=== PATIENT | female | born 1935 | race Caucasian/White ===

== ENCOUNTER 2017-01-13 15:18 | Inpatient (IN) | payer MEDICARE, BC ==
--- NOTE | ~2017-01-13 | EKG ---
PATIENT: JASMIN BOONE UNIT #: [id number] Ventricular Rate: 95 BPM Atrial Rate: 141 BPM QRS Duration: 80 ms Q-T Interval: 368 ms QTC Calculation(Bezet): 462 ms Calculated R Nunnelly: 14 degrees Calculated T Nunnelly: -79 degrees Diagnosis Line: Atrial fibrillation with occasional Diagnosis Line: ventricular-paced complexes Diagnosis Line: ST and T wave abnormality, consider inferior Diagnosis Line: ischemia Diagnosis Line: Abnormal ECG Diagnosis Line: No previous ECGs available Diagnosis Line: Confirmed by ASHIA DAWN MD ([id number]) on 01/16/2017 Diagnosis Line: 10:46:34 PM INTERPRETING MD: NEREYDA LR
--- NOTE | ~2017-01-13 | HP ---
Unit #: [id number] #: [id number] Patient: JASMIN BOONE [id number] [address] [address] [id number] E MR#: [id number] NAME: JASMIN BOONE ROOM: Age: 81 Sex: F Admission Date: 01/13/2017 : 1935 Attending Physician: Spencer Nunes Primary Care Physician: Carol Carmichael M.D. HISTORY AND PHYSICAL CHIEF COMPLAINT Shortness of air. HISTORY OF PRESENT ILLNESS The patient is an 81-year-old female with a history of coronary artery disease, atrial fibrillation, bilateral carotid artery disease, chronic kidney disease, history of hyperlipidemia, hypertension, hypothyroidism, brought to the emergency room complaining of shortness of breath for two to three days. The patient is a poor historian and the history is obtain by reviewing the records and speaking with the ER physician and the ER nurse, as there is no family member available at the time of examination. The patient stated the patient also complains of the pain in the right cheek. The patient is edentulous but uses the dentures. The patient complains of the productive cough with yellowish to greenish. The patient was recently admitted for flu three weeks ago. The patient denies any fever or chills. Positive for decreased oral intake and generalized weakness. PAST MEDICAL HISTORY 1. History of anxiety. 2. Atherosclerotic coronary artery disease. 3. Asthma. 4. Atrial fibrillation. 5. Bilateral carotid artery disease. 6. Chronic obstructive pulmonary disease. 7. CKD. 8. Congestive heart failure. 9. CVA. 10. Depression. 11. Dermatitis. 12. Edema. 13. disease. PAST SURGICAL HISTORY 1. Pacemaker placement. 2. Hip replacement. HOME MEDICATIONS 1. Xanax. 2. Norvasc. 3. Aspirin. 4. Bumex. 5. Combivent. 6. Crestor. Unit #: [id number] #: [id number] Patient: JASMIN BOONE 7. Digoxin. 8. Dulera. 9. Celexa. 10. Fenofibrate. 11. Gabapentin. 12. Isordil. 13. Levothyroxine. 14. Lopressor. 15. Simvastatin. 16. Tradjenta. 17. Warfarin. ALLERGIES Quinolones. SOCIAL HISTORY No history of smoking, alcohol or illicit drug abuse. FAMILY HISTORY Reviewed and none. REVIEW OF SYSTEMS A 14-point review of systems performed and only pertinent positive findings as described above, remaining are negative. PHYSICAL EXAMINATION VITAL SIGNS: Temperature 98.1, pulse 106, respiratory rate 25, blood pressure 150/60, saturating 93% at 2 liters. GENERAL: Patient is lying on the bed not in acute distress. HEENT: Atraumatic, normocephalic. Pupils equal, round, and reactive to light and accommodation. Extraocular movements are intact. Dry mucous membrane. Patient has pain on the right side of the face. No obvious gross tenderness inside the mouth. NECK: Supple. No JVD. LUNGS: Decreased air entry at the bases. Positive for rhonchi. HEART: Irregular rate and rhythm. ABDOMEN: Soft, positive bowel sounds. EXTREMITIES: No cyanosis, no clubbing. NEUROLOGIC: Alert, awake, oriented. No gross focal motor deficit. DIAGNOSTIC STUDIES LABORATORY: Glucose 161, BUN 18, creatinine 1.2, sodium 134, potassium 4.1, chloride 99, bicarb 23, calcium 9.5, lactic acid 1.3. INR 1.6. WBC 27.2, hemoglobin 11.6, hematocrit 35, neutrophils 86.3%. Flu screen is negative. IMAGING: Chest x-ray shows bibasilar infiltrate more pronounced on the right side compared to the left side. CARDIOVASCULAR: EKG shows atrial fibrillation with occasional low ventricular paced complexes at a rate of 95 beats per minute, QTC of 462. ASSESSMENT AND PLAN 1. Pneumonia. 2. Atrial fibrillation. 3. Right cheek pain. 4. Hyponatremia. Unit #: [id number] #: [id number] Patient: JASMIN BOONE PLAN 1. Admit patient to inpatient with telemetry. 2. Continue with IV antibiotics with Rocephin, Zithromax. 3. Check the sputum culture. 4. X-ray of right cheek to rule out abscess. 5. Repeat the labs again in the morning. 6. Further recommendations will follow. Dictated by Abiola Arceo TD: 01/13/2017 18:13 JOB #: [id number] HISTORY AND PHYSICAL Page 1 of 1 X X HISTORY AND PHYSICAL
--- NOTE | ~2017-01-13 | CR72 ---
[facility] A Service of [facility] RADIOLOGY TEXT RESULTS PATIENT: JASMIN BOONE LOCATION: [facility] : 35 UNIT #: [id number] AGE: [address]: Elizabet Espinoza MD SEX: F ORDER DR: [id number] [facility] [address] [place], [place] [address] [id number] I MR#: [id number] Acc #: [id number] NAME: JASMIN BOONE : 1935 SEX: F STUDY DATE/TIME: 01/13/2017 15:08 UNIT: [address] ROOM: [facility] STUDY DESCRIPTION: CR Chest Single View Portable Attending Physician: Scott Sheffield M.D. Ordering Physician: Wes Muhammad M.D. Primary Care Physician: Carol Carmichael M.D. MEDICAL IMAGING REPORT This report is preliminary unless electronic signature is present EXAM Portable chest. DATE OF EXAM 01/13/2017 COMPARISON STUDIES 12/14/2016 HISTORY Cough, congestion, shortness of breath beginning 2 days ago. FINDINGS AP view of the chest obtained. Cardiac size is normal. Transvenous pacemaker remains in place. There are patchy basilar infiltrates. When compared with the study of 12/14/2016, the left basilar infiltrate appears about the same. There may be a slight increase in right basilar infiltrate peripherally. CONCLUSION 1. Chronic interstitial changes in both lungs. 2. Bibasilar infiltrates. Left-sided infiltrate is unchanged from 12/14, right side infiltrate may have increased slightly. Dictated by... Jamie Hodge M.D. THIS IS AN ELECTRONICALLY VERIFIED REPORT Jamie Hodge M.D. at 01/16/2017 2:44 PM GINNA/ginette [facility] A Service of [facility] & [facility] RADIOLOGY TEXT RESULTS PATIENT: JASMIN BOONE LOCATION: [facility] 308 : 35 UNIT #: [id number] AGE: [address]: Elizabet Espinoza MD SEX: F ORDER DR: TD: 01/13/2017 19:59 JOB #: [id number] MEDICAL IMAGING REPORT Page 1 of 1 COPY
--- NOTE | ~2017-01-13 | CT57 ---
[facility] A Service of [facility] & [facility] RADIOLOGY TEXT RESULTS PATIENT: JASMIN BOONE LOCATION: [facility] 308- : 35 UNIT #: [id number] AGE: [address]: Patricio Prakash MD SEX: F ORDER DR: [id number] [facility] [address] [place], [place] [address] [id number] I MR#: [id number] Acc #: [id number] NAME: JASMIN BOONE : 1935 SEX: F STUDY DATE/TIME: 01/14/2017 12:55 UNIT: [address] ROOM: [facility] STUDY DESCRIPTION: CT Chest Wo Cont Attending Physician: Patricio Strickland M.D. Ordering Physician: Physician Non-Staff Primary Care Physician: Carol Carmichael M.D. MEDICAL IMAGING REPORT This report is preliminary unless electronic signature is present EXAM CT chest without contrast. HISTORY Shortness of air and pneumonia [address] exam was performed with one or more of the following radiation dose reduction techniques: automatic exposure control, adjustment of mA and/or kV according to patient size, and iterative reconstruction. FINDINGS CT chest without contrast demonstrates patchy subsegmental infiltrate in the posterior right lung apex. Moderate interstitial prominence in the peripheral lower lungs bilaterally could be due to interstitial scarring, edema, or atelectasis, with slight interval increase in subpleural infiltrates in the lower lungs compared to chest CT 04/22/2016. Mild bronchiectasis in the bilateral lower lobes. No additional airspace infiltrates. No pleural effusions. Mild right paratracheal adenopathy measures 1.3 cm in short axis dimension. Mild adenopathy in the azygoesophageal recess measures 1.5 cm. These nodes are slightly larger than on the prior chest CT. IMPRESSION 1. Mild patchy subsegmental infiltrate in the posterior right upper lobe is nonspecific. Considerations include pneumonia. 2. Moderate coarse peripheral subpleural interstitial prominence in the mid and lower lungs bilaterally, slightly greater than on chest CT 04/22/2016. Considerations include interstitial scarring, edema, or atelectasis. 3. Mild bronchiectasis in the bilateral lower lobes. 4. No additional focal airspace infiltrates. 5. Mildly prominent mediastinal nodes are slightly greater than on the [facility] A Service of [facility] & [facility] RADIOLOGY TEXT RESULTS PATIENT: JASMIN BOONE LOCATION: [facility] 308-01 : 35 UNIT #: [id number] AGE: [address]: Patricio Prakash MD SEX: F ORDER DR: prior exam and could be secondary to reactive or inflammatory adenopathy. 6. No pleural effusions. Dictated by... Jefry Mcginnis M.D. THIS IS AN ELECTRONICALLY VERIFIED REPORT Jefry Mcginnis M.D. at 01/15/2017 5:14 PM MARILYN/chad TD: 01/15/2017 08:03 JOB #: [id number] MEDICAL IMAGING REPORT Page 1 of 1 COPY
--- NOTE | ~2017-01-13 | US116 ---
[facility] A Service of [facility] & [facility] RADIOLOGY TEXT RESULTS PATIENT: JASMIN BOONE LOCATION: [facility] 308-01 : 35 UNIT #: [id number] AGE: [address]: Elizabet Espinoza MD SEX: F ORDER DR: [id number] [facility] [address] [place], [place] [address] [id number] I MR#: [id number] Acc #: [id number] NAME: JASMIN BOONE : 1935 SEX: F STUDY DATE/TIME: 01/14/2017 12:38 UNIT: [address] ROOM: 308 STUDY DESCRIPTION: US Soft Tissue Head/Neck Attending Physician: Patricio Strickland M.D. Ordering Physician: Ed Doctor [id number] [facility] Primary Care Physician: Carol Carmichael M.D. MEDICAL IMAGING REPORT This report is preliminary unless electronic signature is present EXAM Soft tissue ultrasound of the head and neck. COMPARISON CT cervical spine dated March 06, 2009. CT soft tissue neck with IV contrast on January 27, 2009. INDICATION An 81-year-old female with pain and swelling over the right parotid gland for 3 days. Evaluate for possible abscess. FINDINGS In the superficial right parotid gland there is a hypoechoic nodule measuring 3 mm x 4 mm x 3 mm, likely corresponding to the enhancing nodule seen in this location on CT in 2008, possibly representing a normal lymph node. There is no convincing evidence of parotid abscess. The right gland otherwise appears homogeneous. The hypoechoic nodule does not have an internal color flow. In the sagittal plane, the right parotid gland measures 3.9 cm x 1.1 cm. IMPRESSION There is a 4 mm hypoechoic superficial lesion within parotid gland which does not have appreciable internal color flow. This could represent a tiny cyst or more likely this probably corresponds to a 3 mm intraparotid lymph node seen in this location on CT of January 27, 2009. Clinical correlation recommended. It could also represent an early abscess but this is thought much less likely. If symptoms persist, repeat ultrasound could be performed. Regardless, consider followup ultrasound in 6-12 months to document stability. [facility] A Service of [facility] & [facility] RADIOLOGY TEXT RESULTS PATIENT: JASMIN BOONE LOCATION: [facility] 308-01 : 35 UNIT #: [id number] AGE: [address]: Elizabet Espinoza MD SEX: F ORDER DR: Dictated by... Marbin Wright M.D. THIS IS AN ELECTRONICALLY VERIFIED REPORT Marbin Wright M.D. at 01/17/2017 9:11 AM XOCHITL/chichi TD: 01/15/2017 00:59 JOB #: [id number] MEDICAL IMAGING REPORT Page 1 of 1 COPY
--- NOTE | ~2017-01-13 | DS ---
Unit #: [id number] #: [id number] Patient: JASMIN BOONE [id number] [address] [address] [id number] I MR#: [id number] NAME: JASMIN BOONE ROOM: 308 Age: 81 Sex: F Admission Date: 01/13/2017 : 1935 Discharge Date: 01/16/2017 Attending Physician: Elizabet Espinoza M.D. Primary Care Physician: Carol Carmichael M.D. DISCHARGE SUMMARY PRIMARY CARE PHYSICIAN Dr. Carol Carmichael. PRINCIPAL DIAGNOSES 1. Sepsis secondary to right upper lobe healthcare associated pneumonia. 2. Acute hypoxic respiratory failure, now resolved. 3. Right facial swelling, resolved with negative workup. 4. Chronic obstructive pulmonary disease without exacerbation. 5. Chronic atrial fibrillation, rate controlled and maintained on anticoagulation. 6. Mild deconditioning. 7. Mild memory loss. 8. Depression. 9. Hypertension. 10. Diabetes mellitus, type 2, non-insulin requiring, controlled. 11. Hyperlipidemia. 12. Hypothyroidism. 13. Congestive heart failure unknown type with unknown ejection fraction. 14. Chronic kidney disease, stage 3 with baseline creatinine of 1.4. 15. History of stroke. 16. Chronic lower extremity edema. 17. Bronchiectasis. CONSULTANTS None. PROCEDURES 1. CT of the chest without contrast on 01/14/2017 with subsegmental infiltrate in the right upper lobe consistent with pneumonia. Interstitial prominence in mid-lower lung zones bilaterally consistent with scarring, bronchiectasis in the bilateral lower lobes noted. 2. Ultrasound of soft tissue of head and neck without any evidence of stone or abscess within the right parotid gland. 3. Facial x-ray on 01/13/2017 which was normal. 4. Chest x-ray on 01/13/2017 with interstitial changes in both lungs and bibasilar infiltrates. CLINICAL HISTORY AND HOSPITAL COURSE Ms. Boone is an 81-year-old female, who presents to emergency department with shortness of breath. Please refer to H and P for further details. Chest x-ray in the emergency department reveal questionable pneumonia versus scarring; however, she did have an elevated white blood cell count of 27.2, and she was also found to be hypoxic. She was Unit #: [id number] #: [id number] Patient: JASMIN BOONE subsequently admitted. The patient was placed on broad-spectrum antibiotic therapy in addition to nebulizer treatments and oxygen. Over the course of the next several days, white blood cell count has decreased to 13.6 and hypoxia has resolved. Causative organism was not obtained. CT scan of the chest did reveal pneumonia and again she will continue on antibiotics upon discharge. In regard to respiratory failure, again this has resolved. She will continue on nebulizer treatments and Dulera as she was doing at home previously. The patient is on chronic Coumadin therapy and last INR was mildly subtherapeutic at 1.9. She will continue home dose of Coumadin and INR can be checked by home health. The patient's other chronic conditions remained stable. She is mildly deconditioned and PT is recommending home health, which we will arrange upon discharge. DISCHARGE CONDITION Stable. DISCHARGE STATUS Discharged to home with home health for PT/OT and INR monitoring. DISCHARGE MEDICATIONS Vantin 200 mg p.o. b.i.d. for another 5 days, Combivent nebulizer treatments 3 mL q.6 hours p.r.n. for shortness of breath, Coumadin 1 mg alternating with 3 mg every other day, Lexapro 10 mg daily, Xanax 0.25 mg daily, Dulera 200/5 mcg 2 puffs b.i.d., Norvasc 5 mg daily, digoxin of home dose daily, metoprolol succinate 50 mg half a tablet p.o. daily, Tradjenta 5 mg daily, Lasix 40 mg daily, fenofibrate 145 mg daily, Crestor 20 mg daily, aspirin 81 mg daily, levothyroxine 25 mcg p.o. daily, Imdur ER 30 mg daily. DISCHARGE INSTRUCTIONS The patient was instructed to follow a heart healthy diet. She can increase her activity as tolerated. FOLLOWUP The patient to follow up with her primary care physician, Dr. Carol Carmichael in 1 to 2 weeks. She needs followup INR done on 01/18/2017 with results faxed to Dr. Carmichael. Goal INR 2 to 3. Dictated by... Elizabet Espinoza M.D. NAREN/kenzie TD: 01/17/2017 02:20 JOB #: [id number] Unit #: [id number] #: [id number] Patient: JASMIN BOONE DISCHARGE SUMMARY Page 1 of 1 X Elizabet Espinoza MD X DISCHARGE SUMMARY
--- NOTE | ~2017-01-13 | CR101 ---
[facility] A Service of [facility] & [facility] RADIOLOGY TEXT RESULTS PATIENT: JASMIN BOONE LOCATION: [facility] 308- : 35 UNIT #: [id number] AGE: [address]: Patricio Prakash MD SEX: F ORDER DR: [id number] [facility] [address] [place], [place] [address] [id number] I MR#: [id number] Acc #: [id number] NAME: JASMIN BOONE : 1935 SEX: F STUDY DATE/TIME: 01/13/2017 17:48 UNIT: [address] ROOM: [facility] STUDY DESCRIPTION: CR Facial Bones Min 3 Views Attending Physician: Scott Sheffield M.D. Ordering Physician: [place] Muhammad M.D. Primary Care Physician: Carol Carmichael M.D. MEDICAL IMAGING REPORT This report is preliminary unless electronic signature is present EXAM Facial bones HISTORY Right-sided facial swelling and pain x2 days. No trauma. FINDINGS Routine views of the facial bones demonstrates no obvious fracture or deformity. A Kwan view is suboptimal due to underpenetration. Multiple missing teeth but remaining dentition appears in satisfactory repair. Orbits unremarkable. IMPRESSION Negative facial bones. Please note the Kwan view is suboptimal due to underpenetration but no obvious air-fluid level identified. Dictated by... Ann Griffith M.D. THIS IS AN ELECTRONICALLY VERIFIED REPORT Ann Griffith M.D. at 01/14/2017 8:09 PM MANUEL/zachary TD: 01/14/2017 02:41 JOB #: [id number] MEDICAL IMAGING REPORT Page 1 of 1 COPY
[2017-01-13 15:51] LABS: INFLUENZA A NEG (NEG); INFLUENZA B NEG (NEG)
[2017-01-13 15:53] LABS: BASOPHIL% 0.2 % (0-2.5); HEMOGLOBIN 11.6 gm/dL (12.0-16.0); LYMPHOCYTE% 3.5 % (17.0-45.0); MEAN CELL VOLUME 92.6 FL (83-96); MEAN CORPUSCULAR HEMOGLOBIN 30.8 PG (28-34); MEAN CORPUSCULAR HGB CONC 33.2 g/dL (30-36); MONOCYTE# 2.7 X10e3 (0-1.0); NEUTROPHIL# 23.4 X10e3 (1.5-7.1); NEUTROPHIL% 86.3 % (40-75); PLATELET COUNT 361 X10e3 (140-420); RED BLOOD COUNT 3.78 X10e (3.90-5.30); RED CELL DISTRIBUTION WIDTH 13.5 % (11.0-15.5); WHITE BLOOD COUNT 27.2 X10e3 (4.0-10.5)
[2017-01-13 15:54] LABS: DIFF IND YES
[2017-01-13 15:59] LABS: INR 1.6; PARTIAL THROMBOPLASTIN TIME 34.3 SECONDS (23.5-31.3); PROTHROMBIN TIME (PATIENT) 17.5 SECONDS (9.6-11.5)
[2017-01-13 16:07] LABS: PLATELET ESTIMATE NORMAL (NORMAL); RBC NORMAL YES; TOXIC GRANULATION MOD
[2017-01-13 16:11] LABS: CALCIUM SERUM 9.5 mg/dL (8.4-10.2); CREATININE SERUM 1.2 mg/dL (0.6-1.4); GLOM FILT RATE Estimated 42.4 mL/min (>60); POTASSIUM 4.1 mmol/L (3.5-5.1)
[2017-01-13 16:35] LABS: URINE SOURCE CLEAN CATCH
[2017-01-13 16:46] LABS: URINE APPEARANCE CLOUDY; URINE BILIRUBIN NEG (NEG); URINE BLOOD NEG (NEG); URINE COLOR YELLOW; URINE GLUCOSE NEG (NEG); URINE KETONE TRACE (NEG); URINE LEUKOCYTE ESTERASE 1+ (NEG); URINE NITRATE NEG (NEG); URINE PH 5.5 (5-8); URINE PROTEIN 2+ (NEG); URINE SPECIFIC GRAVITY 1.021 (1.003-1.035)
[2017-01-13 16:49] LABS: CULTURE INDICATED? YES; URINE BACTERIA AUWI NEG (NEGATIVE); URINE SQUAMOUS EPITHELIAL CELL OCC /[HPF]
[2017-01-13] MEDS ORDERED: AMLODIPINE BESYL5 MG PO (16:54)
[2017-01-13] MEDS ORDERED: ASPIRIN81 MG PO (16:54)
[2017-01-13] MEDS ORDERED: COMBIVENT U/D3 M2 INH (16:55)
[2017-01-13] MEDS ORDERED: COUMADIN5 MG (16:59)
[2017-01-13] MEDS ORDERED: CRESTOR10 MG PO (17:00)
[2017-01-13] MEDS ORDERED: DIGITEK125 MC1 PO (17:03)
[2017-01-13] MEDS ORDERED: DULERA 200 MCG/13 GM INH (17:04)
[2017-01-13] MEDS ORDERED: ESCITALOPRAM OX10 MG PO (17:04)
[2017-01-13] MEDS ORDERED: FUROSEMIDE40 MG PO (17:05)
[2017-01-13] MEDS ORDERED: FENOFIBRATE145 MG PO (17:05)
[2017-01-13] MEDS ORDERED: IMDUR-ER30 M1 PO (17:06)
[2017-01-13] MEDS ORDERED: SYNTHROID25 MCG PO (17:06)
[2017-01-13] MEDS ORDERED: TRADJENTA5 MG PO (17:07)
[2017-01-13] MEDS ORDERED: TOPROL XL50 MG PO (17:07)
[2017-01-13] MEDS ORDERED: ALPRAZOLAM PO (17:08)
[2017-01-14 05:29] LABS: HEMATOCRIT 34.6 % (35.0-45.0); HEMOGLOBIN 11.2 gm/dL (12.0-16.0); MEAN CELL VOLUME 93.3 FL (83-96); MEAN CORPUSCULAR HEMOGLOBIN 30.3 PG (28-34); MEAN CORPUSCULAR HGB CONC 32.5 g/dL (30-36); MEAN PLATELET VOLUME 8.9 FL (6.5-11.5); RED BLOOD COUNT 3.71 X10e (3.90-5.30); RED CELL DISTRIBUTION WIDTH 13.1 % (11.0-15.5)
[2017-01-14 05:39] LABS: INR 1.9; PROTHROMBIN TIME (PATIENT) 20.5 SECONDS (9.6-11.5)
[2017-01-14 06:23] LABS: BUN/CREATININE RATIO 15.83; CREATININE SERUM 1.2 mg/dL (0.6-1.4); GLOM FILT RATE Estimated 42.4 mL/min (>60); POTASSIUM 4.2 mmol/L (3.5-5.1)
[2017-01-15 06:17] LABS: HEMATOCRIT 31.8 % (35.0-45.0); HEMOGLOBIN 10.2 gm/dL (12.0-16.0); MEAN CELL VOLUME 93.9 FL (83-96); MEAN PLATELET VOLUME 8.6 FL (6.5-11.5); RED BLOOD COUNT 3.39 X10e (3.90-5.30); RED CELL DISTRIBUTION WIDTH 13.5 % (11.0-15.5); WHITE BLOOD COUNT 17.8 X10e3 (4.0-10.5)
[2017-01-15 06:30] LABS: ALBUMIN SERUM 2.7 g/dL (3.5-5.0); BILIRUBIN,TOTAL 0.5 mg/dL (0.2-2.0); BUN/CREATININE RATIO 22.14; CALCIUM SERUM 8.5 mg/dL (8.4-10.2); CREATININE SERUM 1.4 mg/dL (0.6-1.4); GLOM FILT RATE Estimated 35.1 mL/min (>60); MAGNESIUM 2.3 mg/dL (1.6-3.0); POTASSIUM 4.6 mmol/L (3.5-5.1); PROTEIN TOTAL SERUM 7.1 g/dL (6.0-8.3)
[2017-01-16 08:17] LABS: BASOPHIL# 0.1 X10e3 (0-0.3); BASOPHIL% 0.4 % (0-2.5); EOSINOPHIL# 0.1 X10e3 (0-0.7); EOSINOPHIL% 1.1 % (0.0-7.0); HEMATOCRIT 31.9 % (35.0-45.0); HEMOGLOBIN 10.2 gm/dL (12.0-16.0); LYMPHOCYTE# 1.2 X10e3 (1.0-3.5); LYMPHOCYTE% 8.5 % (17.0-45.0); MEAN CELL VOLUME 94.4 FL (83-96); MEAN CORPUSCULAR HEMOGLOBIN 30.2 PG (28-34); MEAN PLATELET VOLUME 8.6 FL (6.5-11.5); MONOCYTE# 1.7 X10e3 (0-1.0); MONOCYTE% 12.2 % (3.0-12.0); NEUTROPHIL# 10.6 X10e3 (1.5-7.1); NEUTROPHIL% 77.8 % (40-75); PLATELET COUNT 336 X10e3 (140-420); RED BLOOD COUNT 3.38 X10e (3.90-5.30); RED CELL DISTRIBUTION WIDTH 13.9 % (11.0-15.5); WHITE BLOOD COUNT 13.6 X10e3 (4.0-10.5)
[2017-01-16 08:18] LABS: DIFF IND NO
[2017-01-16 08:36] LABS: CALCIUM SERUM 8.5 mg/dL (8.4-10.2); CREATININE SERUM 1.4 mg/dL (0.6-1.4); GLOM FILT RATE Estimated 35.1 mL/min (>60); POTASSIUM 4.5 mmol/L (3.5-5.1)
[2017-01-16] MEDS ORDERED: ACETAMINOPHEN650 M1 PO (15:22)
[2017-01-16] MEDS ORDERED: WARFARIN SODIUM1 M1 PO (15:22)
[2017-01-16] MEDS ORDERED: COUMADIN3 MG PO (15:23)
[2017-01-16] MEDS ORDERED: VANTIN200 MG PO (15:24)
== END 2017-01-16 18:05 | disposition home or self-care (01) | DRG 871 ==
LOC: CED 15:18 → CEDOF 16:53 → C3A PCU 18:23
PROVIDERS: Emergency Medicine; Internal Medicine
DX: A41.9 Sepsis, unspecified organism (principal); J96.01 Acute respiratory failure with hypoxia; I13.0 Hypertensive heart and chronic kidney disease with heart failure and stage 1 through stage 4 chronic kidney disease, or unspecified chronic kidney disease; J18.9 Pneumonia, unspecified organism; J44.0 Chronic obstructive pulmonary disease with (acute) lower respiratory infection; I48.2 Chronic atrial fibrillation; I50.9 Heart failure, unspecified; Z79.01 Long term (current) use of anticoagulants; R41.3 Other amnesia; F32.9 Major depressive disorder, single episode, unspecified; N18.3 Chronic kidney disease, stage 3 (moderate); E11.9 Type 2 diabetes mellitus without complications; E78.5 Hyperlipidemia, unspecified; E03.9 Hypothyroidism, unspecified; R60.0 Localized edema; I25.10 Atherosclerotic heart disease of native coronary artery without angina pectoris; Z95.0 Presence of cardiac pacemaker; Z79.82 Long term (current) use of aspirin; Z86.73 Personal history of transient ischemic attack (TIA), and cerebral infarction without residual deficits; Z96.649 Presence of unspecified artificial hip joint
CPT/HCPCS: 36415; 70150; 71010; 71250; 76536; 80048; 80053; 81003; 82607; 83605; 83735; 84443; 85025; 85027; 85610; 85730; 87040; 87086; 87804; 92526; 92610; 93005; 94760; 96374; 97110; 97116; 97162; 97166; 97530; 97535; 99285; G8978-GP; G8979-GP; G8980-GP; G8987-GO; G8988-GO; G8996-GN; G8997-GN; J0456; J0696; J2270